=== PATIENT | male | born 1990 | race Caucasian/White ===

== ENCOUNTER 2022-07-10 16:08 | Outpatient (CLI) | payer OTHER, SELFPAY | END 2022-07-10 16:09 | disposition home or self-care (01) | PROVIDERS: Visit Provider Family Medicine | DX: R53.83 Other fatigue (principal); R10.9 Unspecified abdominal pain; F41.8 Other specified anxiety disorders; R10.13 Epigastric pain | CPT/HCPCS: 80053; 84443 ==